=== PATIENT | male | born 1980 | race Caucasian/White ===

== ENCOUNTER 2025-08-08 10:15 | Inpatient (IN) | payer BC ==
[~2025-08-08] VITALS: Ht 170.2 cm; Wt 81.6 kg
[2025-08-08 11:39] LABS: PLATELET COUNT (AUTO) 243 K/uL (150-450); RED BLOOD CELL COUNT(AUTO) 4.28 MIL/uL (4.5-6.0); RED CELL DISTRIBUTION WIDTH 16.5 % (11.5-15.0); WHITE BLOOD COUNT (AUTO) 7.8 K/uL (4.3-11.0)
[2025-08-08 11:44] LABS: CALCIUM, SERUM 8.3 mg/dL (8.5-10.1); CREATININE 1.2 mg/dL (0.6-1.3); SODIUM SERUM 139 mmol/L (136-145); UREA NITROGEN, BLOOD 22 mg/dL (7-18)
[2025-08-08 11:48] LABS: PHOSPHORUS 4.4 mg/dL (2.5-4.9)
[2025-08-08 11:57] LABS: NT-PRO BNP 1915 pg/mL (0-125)
[2025-08-08] MEDS ORDERED: ASPIRIN EC 325 MG TABLET.DR PO ONE (11:57)
[2025-08-08] MEDS: ASPIRIN EC 325 MG TABLET.DR PO ONE (12:00)
[2025-08-08] MEDS ORDERED: FUROSEMIDE 40 MG/4 ML VIAL ONE (12:24)
[2025-08-08] MEDS: FUROSEMIDE 40 MG/4 ML VIAL IV ONE (12:38)
[2025-08-08] MEDS ORDERED: ONDANSETRON HCL/PF 4 MG/2 ML VIAL IVP PRN (13:00)
[2025-08-08] MEDS ORDERED: MAGNESIUM HYDROXIDE 30 ML UDC PO PRN (13:00)
[2025-08-08] MEDS ORDERED: HYDROCODONE/APAP 5/325MG TABLET PO PRN (13:00)
[2025-08-08] MEDS ORDERED: NITROGLYCERIN 0.4 MG/TAB BOTTLE SL PRN (13:00)
[2025-08-08] MEDS ORDERED: MAG HYDROX/AL HYDROX/SIMETH 30 ML UDC PO PRN (13:00)
[2025-08-08] MEDS ORDERED: ACETAMINOPHEN 325 MG TABLET PO PRN (13:00)
[2025-08-08] MEDS ORDERED: Z GUARD REMEDY 4 OZ OINT TP PRN (13:00)
[2025-08-08 14:43] VITALS: BP 99/59; TEMP 98.2; O2SAT 97
[2025-08-09] MEDS ORDERED: PANTOPRAZOLE 40 MG TABLET.DR PO SCH (07:30)
[2025-08-09] MEDS ORDERED: ASPIRIN 81 MG TAB.CHEW PO SCH (09:00)
[2025-08-09] MEDS ORDERED: FUROSEMIDE 40 MG/4 ML VIAL IV SCH (09:00)
== END 2025-08-08 16:40 | disposition left against medical advice (07) | DRG 280 ==
LOC: ER 10:23 → TELE IN 12:24 → TELE 15:37
PROVIDERS: ADMIT Nurse Practitioner Acute Care; ATTEND Nurse Practitioner Acute Care
DX: I11.0 Hypertensive heart disease with heart failure (principal); I50.23 Acute on chronic systolic (congestive) heart failure; I21.A1 Myocardial infarction type 2; E86.0 Dehydration; E66.9 Obesity, unspecified; F11.10 Opioid abuse, uncomplicated; E78.5 Hyperlipidemia, unspecified; E87.5 Hyperkalemia; F17.210 Nicotine dependence, cigarettes, uncomplicated; F15.10 Other stimulant abuse, uncomplicated; Z68.28 Body mass index [BMI] 28.0-28.9, adult; I42.7 Cardiomyopathy due to drug and external agent; Z53.29 Procedure and treatment not carried out because of patient's decision for other reasons
CPT/HCPCS: 36415; 71045-TC; 80048-TC; 83735-TC; 83880; 84100-TC; 84484-TC; 85025-TC; 93307-TC; G0378; J1938